=== PATIENT | male | born 1970 | race African-American/Black ===

== ENCOUNTER 2018-02-22 04:11 | Emergency (ER) | payer SELFPAY ==
[2018-02-22] MEDS ORDERED: Morphine 10 MG/ML VIAL ONE (04:30)
[2018-02-22] MEDS ORDERED: Pantoprazole 40 MG VIAL ONE (04:31)
[2018-02-22] MEDS ORDERED: Ondansetron ODT 4 MG TAB ONE (04:31)
[2018-02-22 04:35] LABS: Bilirubin Negative (Negative); Blood, Urine Negative (Negative); Clarity CLEAR (Clear); Glucose, Urine (Dipstick) Negative (Negative); Leukocyte Negative (Negative); Nitrite Negative (Negative); Protein, Urine (Dipstick) Trace mg/dL (Neg-Trace); Specific Gravity, Urine 1.022 (1.002-1.036); pH, Urine 7.5 (5.0-9.0)
[2018-02-22 05:13] LABS: #Lymphocytes 1.2 thou/uL (1.20-3.40); #Monocytes 0.4 thou/uL (0.11-0.59); %Basophils 0.4 % (0.0-1.0); %Eosinophils 0.1 % (0.0-10.0); %Lymphocytes 12.2 % (21.0-51.0); %Monocytes 4.1 % (0.0-10.0); %Neutrophils 83.2 % (42.0-75.0); Hemoglobin 12.7 g/dL (14.0-18.0); Mean Corpuscular Hemoglobin 25.4 pg (27.0-31.0); Mean Corpuscular Volume 81.9 fL (78.0-98.0); Mean Platelet Volume 8.6 fL (7.4-10.4); Platelet Count 270 thou/uL (130-400); RBC Distribution Width 12.5 % (11.5-14.5); Red Blood Cell (RBC) Count 5.01 mill/uL (4.70-6.10); White Blood Cell (WBC) Count 9.6 thou/uL (4.8-10.8)
[2018-02-22 05:37] LABS: CKMB 2.4 ng/mL (0-6.6); Troponin I Less than 0.010 ng/mL (< 0.028)
[2018-02-22 05:39] LABS: ALT (SGPT) 19 U/L (8-55); AST (SGOT) 18 U/L (5-34); Albumin 4.7 g/dL (3.5-5.0); Alkaline Phosphatase 62 U/L (40-150); Anion Gap 10 mmol/L (10-20); BUN (Urea Nitrogen) 14 mg/dL (8.9-20.6); Bilirubin, Total 0.5 mg/dL (0.2-1.2); CK (CPK) 389 U/L (30-200); Calc. Creatinine Clearance 0 mL/min (70-130); Carbon Dioxide 29 mmol/L (22-29); Chloride 104 mmol/L (98-107); Estimated GFR-MDRD 63; Globulin 3.4 g/dL (2.4-3.5); Glucose 137 mg/dL (70-105); Lipase 74 U/L (8-78); Potassium 3.9 mmol/L (3.5-5.1); Protein, Total 8.1 g/dL (6.0-8.3); Sodium 139 mmol/L (136-145)
--- NOTE | 2018-02-22 10:56 | RAD ---
CHEST 1 VIEW: HISTORY: Nausea. Vomiting. COMPARISON: None. FINDINGS: Normal cardiac silhouette. The lungs and pleural spaces are clear. No pneumothorax or osseous abnor malities. IMPRESSION: No acute cardiopulmonary process. POS: ZHAOH
[2018-02-22] MEDS ORDERED: ISOVUE-370 76%-LOCM 1 ML ONE (12:54)
--- NOTE | 2018-02-22 14:51 | CT ---
PRELIMINARY REPORT/[facility]/EMERGENTY AFTER-HOURS PROCEDURE CT Abdomen and Pelvis With Intravenous Contrast CLINICAL HISTORY: 47 years old, male; Pain; Abdominal pain; Generalized; Patient HX: Pt reports abdominal pain and vomi ting onset last night. History of "bleeding ulcer TECHNIQUE: Axial computed tomography images of the abdomen and pelvis with intravenous contrast. Coronal reformatted images were created and reviewed. COMPARISON: No relevant prior studies available. FINDINGS: Lung bases: There is subpleural atelectasis of the dependent portions of the lungs. ABDOMEN: Liver: There are no focal liver lesions identified. Gallbladder and bile ducts: The gallbladder is normal. There is no evidence of biliary ductal dilatio n. No calcified stones. Pancreas: The pancreas appears normal. No ductal dilation. Spleen: The spleen is normal. Adrenals: The adrenal glands are normal. Kidneys and ureters: The kidneys appear normal. No hydronephrosis. Stomach and bowel: The stomach is normal. The duodenum is unremarkable. The duodenum is unremarkable. No obstruction. No mucosal thickening. PELVIS: Appendix: No findings to suggest acute appendicitis. Bladder: The bladder is normal. Reproductive: The prostate gland and seminal vesicles are normal. ABDOMEN and PELVIS: Intraperitoneal space: Normal. No free air. No significant fluid collection. Bones/joints: No acute fracture. No dislocation. Soft tissues: There is a fat-containing umbilical hernia. Vasculature: Normal. No abdominal aortic aneurysm. Lymph nodes: Normal. No enlarged lymph nodes. IMPRESSION: No acute abdominal pelvic pathology. Thank you for allowing us to participate in the care of your patient. Dictated and Authenticated by: Gregorio Shaffer MD 02/22/2018 6:02 AM Central Time ([place] & [place]) FINAL REPORT ABDOMEN CT WITH CONTRAST PELVIC CT WITH CONTRAST: HISTORY: Abdominal pain. Previous ulcer surgery. COMPARISON: None. TECHNIQUE: Abdomen and pelvic CT are performed with IV contrast. Enteric contrast was not administered. Hurst l reformatted images are submitted for interpretation. FINDINGS: There is a 1.2 cm hyperdense focus in the left lung base, incompletely evaluated. This finding was not mentioned in the preliminary report by [facility]. There is mild mucosal thickening involving the distal sigmoid colon and rectum. Correlate for procti tis. This finding was also not commented upon in the preliminary report by [facility]. The ileocecal junct ion is normal. Appendix is difficult to appreciate. Note is made of a ventral abdominal hernia cont aining mesenteric fat. IMPRESSION: 1. Mucosal thickening involving the rectum. Correlate for proctitis. 2. Incompletely evaluated hyperdensity in the left lung base. Code lung nodule. 3. Results of the study discussed with Dr. Sarmiento 02/22/18 at 9:53 a.m. CODE CR POS: JORGE A
== END 2018-02-22 06:19 | disposition home or self-care (01) ==
LOC: ERS 04:11
DX: K21.9 Gastro-esophageal reflux disease without esophagitis (principal)
CPT/HCPCS: 71045; 74177; 80053; 81003; 82274; 82553; 83690; 84484; 85025; 93005; 96361; 96374; 96375; C9113; J2270; Q0162